=== PATIENT | female | born 1965 | race Caucasian/White ===

== ENCOUNTER 2017-08-12 13:15 | Outpatient (RCR) | payer MEDICARE, MEDICAID ==
[~2017-08-12 13:15] MED LIST: CELEXA 20MG20 MG/TAB PO; CLEOCIN HCL300 MG PO; DEMADEX100 MG PO; DIABETA 5MG5 MG/TAB PO; GLUCOPHAGE1000 MG PO; KLONOPIN 0.5MG0.5 MG PO; LANTUS100 U/ML SC; LASIX 80MG TABL80 MG PO; LORTAB 5/500 501 TAB PO; NAPROSYN500 MG PO; NORCO 325 MG-51 TAB PO; PERCOCET 325 MG1 TA2 PO; PROVENTIL0.09 MG/A1 IH; SAVELLA50 MG PO; SUPER B COMPLEX1 TA2 PO; TYLENOL 500MG500 MG PO; TYLENOL W/COD1 UDTAB PO; VASOTEC20 MG PO; VITAMIN B-12100 MCG PO; VITAMIN C PUR1000 MG PO; VITAMIN D32000 IU PO; ZYLOPRIM 100MG100 MG PO
== END 2017-08-15 | disposition still patient (30) ==
LOC: WSPT
DX: M54.5 Low back pain (principal); M25.50 Pain in unspecified joint; E66.9 Obesity, unspecified; Z68.35 Body mass index [BMI] 35.0-35.9, adult
CPT/HCPCS: G8978-GP; G8979-GP

== ENCOUNTER 2017-08-29 11:15 | Outpatient (RCR) | payer MEDICARE, MEDICAID | END 2017-09-04 09:20 | disposition home or self-care (01) | LOC: WSPT 11:15 | DX: M54.5 Low back pain (principal); M25.50 Pain in unspecified joint; Z68.35 Body mass index [BMI] 35.0-35.9, adult | CPT/HCPCS: G8979-GP; G8980-GP ==

== ENCOUNTER 2022-10-09 08:15 | Outpatient (RCR) | payer MEDICARE | END 2022-10-16 | disposition home or self-care (01) | LOC: WSPT | DX: M54.41 Lumbago with sciatica, right side (principal); M54.42 Lumbago with sciatica, left side; G89.29 Other chronic pain ==

== ENCOUNTER 2022-11-04 19:37 | Inpatient (IN) | payer MEDICARE ==
[~2022-11-04] VITALS: Ht 167.6 cm; Wt 135.3 kg
[2022-11-04 20:17] LABS: BASO % 0.7 % (0.0-2.0); EOS # 0.1 K/mm3 (0.0-0.7); GRAN # 1.5 K/mm3 (1.4-6.5); GRAN % 51.8 % (42.2-75.2); HEMATOCRIT 50.1 % (37.0-47.0); HEMOGLOBIN 16.1 g/dl (12.5-16.0); LYMPH # 0.9 K/mm3 (1.2-3.4); LYMPH % 30.4 % (20.0-51.0); MEAN CELL VOLUME 92 fl (80.0-100.0); MEAN CORPUSCULAR HEMOGLOBIN 30 pg (27-31); MEAN CORPUSCULAR HGB CONC 32 g/dl (33.0-37.0); MEAN PLATELET VOLUME 11.4 fl (7.4-10.4); MONO # 0.4 K/mm3 (0.1-0.6); MONO % 13.7 % (1.7-9.3); PLATELET COUNT 126 K/mm3 (130-400); RED BLOOD COUNT 5.42 M/mm3 (4.10-5.30); REDCELL DISTRIBUTION WIDTH-CV 14.6 % (11.5-14.5)
[2022-11-04 20:31] LABS: ALANINE AMINOTRANSFERASE 34 U/L (0-55); ALBUMIN 3.7 gm/dL (3.5-5.0); ALKALINE PHOSPHATASE 68 U/L (40-150); ANION GAP 14 mmol/L (7-16); AST,SGOT 29 U/L (5-34); BILIRUBIN,TOTAL 0.7 mg/dL (0.2-1.2); BLOOD UREA NITROGEN 7 mg/dL (10-20); CALCIUM 10.1 mg/dL (8.4-10.2); CARBON DIOXIDE 23 mmol/L (22-29); CHLORIDE 106 mmol/L (98-107); CREATININE, serum 0.79 mg/dL (0.57-1.11); GLUCOSE 120 mg/dL (70-99); POTASSIUM 4.1 mmol/L (3.5-4.5); SODIUM 143 mmol/L (136-145); TOTAL PROTEIN 7.9 gm/dL (6.2-8.1)
[2022-11-04 20:37] LABS: TROPONIN-I < 0.010 ng/mL (0.00-0.033)
[2022-11-04 21:32] LABS: COLLECTION METHOD CLEAN CATCH
[2022-11-04 21:39] LABS: MUCOUS Present (NOT PRESENT); SQUAMOUS EPITHELIAL 0-2 /hpf (0-10); URINE APPEARANCE Clear (CLEAR/HAZY); URINE BACTERIA None Seen /hpf (NONE SEEN); URINE BLOOD Negative (NEGATIVE); URINE COLOR Yellow (YELLOW); URINE GLUCOSE 2+ (NEGATIVE); URINE KETONE Negative (NEGATIVE); URINE NITRATE Negative (NEGATIVE); URINE PROTEIN(semi-quant) Negative (NEGATIVE); URINE RBC 0-2 /hpf (0-2); URINE WBC 0-2 /hpf (0-2)
--- NOTE | 2022-11-05 00:30 | NUR ---
PATIENT WAS RECEIVED FROM ED ON A WHEELCHAIR .PATIENT IS ALERT AND ORIENTED.PATIENT IS ON SUPPLEMENTAL OXYGEN 4L VIA NC.PATIENT DENIES PAIN.PATIENT IS A SBA.ADMISSION ORIENTATION DONE.PATIENT WAS OFFERED SALTINE CRACKERS,PEANUT AND CHICKEN BROTH.PATIENT ATE WELL.NO OTHER NEEDS AT THIS TIME.
[2022-11-05 01:09] VITALS: BP 153/78; PULSE 110; TEMP 98.3
[2022-11-05 03:44] VITALS: BP 150/71; PULSE 108; TEMP 98.3
--- NOTE | 2022-11-05 04:11 | NUR ---
IV FLULDS INFUSING WELL.PATIENT DENIES SOB AND PAIN AT THIS TIME.NO OTHER NEEDS AT THIS TIME.
[2022-11-05 06:45] LABS: BASO % 0.4 % (0.0-2.0); EOS % 0.4 % (0.0-4.0); GRAN # 2.2 K/mm3 (1.4-6.5); GRAN % 77.8 % (42.2-75.2); HEMATOCRIT 46.2 % (37.0-47.0); LYMPH # 0.5 K/mm3 (1.2-3.4); LYMPH % 17.9 % (20.0-51.0); MEAN CELL VOLUME 92 fl (80.0-100.0); MEAN CORPUSCULAR HEMOGLOBIN 30 pg (27-31); MEAN CORPUSCULAR HGB CONC 33 g/dl (33.0-37.0); MEAN PLATELET VOLUME 12.2 fl (7.4-10.4); MONO # 0.1 K/mm3 (0.1-0.6); MONO % 2.1 % (1.7-9.3); PLATELET COUNT 115 K/mm3 (130-400); RED BLOOD COUNT 5.05 M/mm3 (4.10-5.30); REDCELL DISTRIBUTION WIDTH-CV 14.6 % (11.5-14.5)
[2022-11-05 07:26] LABS: CALCIUM 9.7 mg/dL (8.4-10.2); CREATININE, serum 0.72 mg/dL (0.57-1.11)
[2022-11-05 08:00] VITALS: BP 137/61; PULSE 100; TEMP 98.1
--- NOTE | 2022-11-05 08:30 | NUR ---
PCT notified this nurse of pts O2 saturation currently 89% on 10L per NC. Pts lower lobes diminished upon lung auscultation. Denies c/o SOB. RT notified. Pt now on 90% on 11L per high flow NC. Dr. Saucedo aware.
--- NOTE | 2022-11-05 08:45 | NUR ---
Morning medications administered per eMAR. Shift assessment completed. Pt remains on 11L per high flow NC with O2 sat remaining at 90%; Dr. Saucedo aware. Telemetry remains on. Peripheral line in R AC remains patent, no edema or redness. Denies c/o pain at this time. Call light within reach. Pulse ox remains on.
[2022-11-05 12:00] VITALS: BP 157/68; PULSE 92; TEMP 98.8
--- NOTE | 2022-11-05 12:42 | NUR ---
Initial visit: Pt was resting and content. Pt stated no needs right now. Manager will follow up as needed.
--- NOTE | 2022-11-05 14:43 | NUR ---
Director Of Quality Control met with Patient in her room to conduct Care Managment intake and discuss discharge planning. Patient verrified that she lives in [place], [place] with her room mate Shekhar P:[phone]. Patient reports that her PCP is in [place], [place]. Patient reports that she does not use O2 or DME. Patient is independant with ADLS/IADLs and intends on discharging home when medically cleared. Patient reports [employer] as her primary insurance.
[2022-11-05 16:24] VITALS: BP 161/77; PULSE 94; TEMP 98.5
[2022-11-05 19:57] VITALS: BP 152/71; PULSE 103; TEMP 98
--- NOTE | 2022-11-05 20:20 | NUR ---
Patient assessed around 2019, A/O, head to toe assessment done, see shift assessment, denies pain, remains on 10L of oxygen via HFNC, IV to right AC, denies further needs, call light and personal items within reach, will continue to monitor.
--- NOTE | 2022-11-05 22:00 | NUR ---
At 2145, patient complained of pain on her IV site, no redness or swelling noted, reinserted IV on her left hand G22.
[2022-11-06] VITALS (7 sets, daily range): BP systolic 145–156; BP diastolic 57–91; PULSE 77–92; TEMP 97.3–98.2
--- NOTE | 2022-11-06 08:00 | NUR ---
PATIENT IS A&O. VSS. 02 @ 10L PER NC WITH SATS IN LOW 90'S. PATIENT REPORTS SHE STOPPED SMOKING 2 MONTHS AGO. SHE REPORTS SHE IS FEELING BETTER AND SITTING UP IN BED WITH BREAKFAST TRAY. NO COMPLAINTS. AM BS WAS 175, NO SSI REQUIRED. AM MEDS GIVEN. HEAD TO TOE ASSESSMENT COMPLETE. PT/OT CONSULTED. SCD'S TO BLE. IV FLUIDS INFUSING VIA PUMP INTO LEFT HAND IV. NO OTHER NEEDS AT THIS TIME. HOSPITALIST TEAM ROUNDING, SEE ORDERS.
[2022-11-06 09:08] LABS: BASO % 0.2 % (0.0-2.0); GRAN # 5.3 K/mm3 (1.4-6.5); GRAN % 83.7 % (42.2-75.2); HEMATOCRIT 44.2 % (37.0-47.0); HEMOGLOBIN 14.2 g/dl (12.5-16.0); LYMPH # 0.7 K/mm3 (1.2-3.4); LYMPH % 11.3 % (20.0-51.0); MEAN CELL VOLUME 91 fl (80.0-100.0); MEAN CORPUSCULAR HEMOGLOBIN 29 pg (27-31); MEAN CORPUSCULAR HGB CONC 32 g/dl (33.0-37.0); MEAN PLATELET VOLUME 11.3 fl (7.4-10.4); MONO # 0.2 K/mm3 (0.1-0.6); MONO % 3.8 % (1.7-9.3); PLATELET COUNT 131 K/mm3 (130-400); RED BLOOD COUNT 4.84 M/mm3 (4.10-5.30); REDCELL DISTRIBUTION WIDTH-CV 14.5 % (11.5-14.5)
[2022-11-06 09:23] LABS: CALCIUM 9.3 mg/dL (8.4-10.2); CREATININE, serum 0.62 mg/dL (0.57-1.11); POTASSIUM 4.1 mmol/L (3.5-4.5)
--- NOTE | 2022-11-06 09:53 | NUR ---
Shift assessment completed at 0745, patient was alert and oriented X4. Patient stated no pain or discomfort. Pedal pulses were difficult to palpate, I will be following up at a later time. Patient was educated on importance of incentive spirometer. A focused lung assessment was also completed. Respiratory therapy enter the room at 0740. Student nurse left the room while respiratory therapist was assisting patient, call light in reach.
--- NOTE | 2022-11-06 21:13 | NUR ---
Patient assessed around 2112, doing better, A/O, head to toe assessment done, see shift assessment, denies pain or discomfort, denies further needs, call light and personal items within reach, will continue to monitor.
--- NOTE | 2022-11-06 22:15 | NUR ---
Patient's IV clotted, reinserted IV on left forearm G22 by kiln head house operator.
[2022-11-07] VITALS (8 sets, daily range): BP systolic 133–174; BP diastolic 69–80; PULSE 61–87; TEMP 97.4–98.8
--- NOTE | 2022-11-07 05:04 | NUR ---
Patient resting in bed, remains on oxygen at 7LPM via HFNC, will continue to monitor.
[2022-11-07 06:35] LABS: HEMATOCRIT 44.4 % (37.0-47.0); HEMOGLOBIN 14.2 g/dl (12.5-16.0); MEAN CELL VOLUME 92 fl (80.0-100.0); MEAN CORPUSCULAR HEMOGLOBIN 30 pg (27-31); MEAN CORPUSCULAR HGB CONC 32 g/dl (33.0-37.0); MEAN PLATELET VOLUME 11.5 fl (7.4-10.4); PLATELET COUNT 155 K/mm3 (130-400); RED BLOOD COUNT 4.82 M/mm3 (4.10-5.30); REDCELL DISTRIBUTION WIDTH-CV 14.6 % (11.5-14.5)
[2022-11-07 06:59] LABS: CALCIUM 9.6 mg/dL (8.4-10.2); CREATININE, serum 0.67 mg/dL (0.57-1.11); POTASSIUM 4.4 mmol/L (3.5-4.5)
[2022-11-07 07:35] LABS: BAND 3 % (0-10); LYMPHOCYTE 8 % (20.0-51.0); NEUTROPHILS 87 % (42.0-75.2)
[2022-11-07 07:36] LABS: MYELOCYTE 0 % (0-0); PLATELET ESTIMATE NORMAL (NORMAL)
--- NOTE | 2022-11-07 09:55 | NUR ---
Head-to-toe assessment completed at 0800, patient was alert and oriented X4. Patient stated she was in no pain at this time. Respiratory therpay initiated a breathing treatment at 0730. After treatment, patient was moved to 5LPM per HFNC by RT. I noted there was a 22gauge peripheral IV to the left forearm, no redness/ edema present. Patient is optimistic about being discharged. Will continue to monitor patients 02 sats. Medications were administered as shown in the EMAR at 0930. Poor tissue perfusion resulted in cap refill >3 in feet.
--- NOTE | 2022-11-07 10:34 | NUR ---
PATIENT ALERT AND ORIENTED X4. VSS. PATIENT HERE FOR HYPOXIA/PNA. REPEAT CXR TO BE COMPLETED TODAY. PATIENT DENIES ANY PAIN. IV TO LEFT FA INT. CALL LIGHT WITHIN REACH.
--- NOTE | 2022-11-07 15:43 | NUR ---
Initial visit; Patient thanked Inspector Packer for looking in on her and asking how she was doing and if she had had "Imposition of Ashes" She said people from [facility] stopped by this morning so she is "ok." Inspector Packer offered God's blessings.
--- NOTE | 2022-11-07 20:10 | NUR ---
Patient assessed around 2007, head to toe assessment done, see shift assessment, denies pain or discomfort, denies shortness of air, took a shower, denies further needs, call light and personal items within reach, will continue to monitor.
[2022-11-08 03:08] VITALS: BP 151/70; PULSE 69; TEMP 97.8
--- NOTE | 2022-11-08 06:32 | NUR ---
Patient had an uneventful night, on oxygen via HFNC at 3LPM, will report off to dayshift.
[2022-11-08 06:48] LABS: HEMATOCRIT 42.9 % (37.0-47.0); MEAN CELL VOLUME 91 fl (80.0-100.0); MEAN CORPUSCULAR HEMOGLOBIN 30 pg (27-31); MEAN CORPUSCULAR HGB CONC 33 g/dl (33.0-37.0); MEAN PLATELET VOLUME 11.8 fl (7.4-10.4); PLATELET COUNT 165 K/mm3 (130-400); RED BLOOD COUNT 4.73 M/mm3 (4.10-5.30); REDCELL DISTRIBUTION WIDTH-CV 14.6 % (11.5-14.5)
[2022-11-08 07:12] LABS: CALCIUM 9.3 mg/dL (8.4-10.2); CREATININE, serum 0.74 mg/dL (0.57-1.11)
[2022-11-08 07:47] LABS: BAND 2 % (0-10); METAMYELOCYTE 1 % (0-0); NEUTROPHILS 73 % (42.0-75.2)
[2022-11-08 07:48] LABS: LYMPHOCYTE 19 % (20.0-51.0); PLATELET ESTIMATE NORMAL (NORMAL)
[2022-11-08 07:50] VITALS: BP 154/71; PULSE 62; TEMP 98
[2022-11-08] MEDS ORDERED: CHANTIX 1MG1 MG PO (08:27)
[2022-11-08] MEDS ORDERED: LYRICA 150MG C150 MG PO (08:28)
[2022-11-08] MEDS ORDERED: PRINIVIL2.5 MG PO (08:28)
[2022-11-08] MEDS ORDERED: EFFEXOR-XR150 MG PO (08:29)
[2022-11-08] MEDS ORDERED: OZEMPIC1 MG/0.71 SQ (08:29)
[2022-11-08] MEDS ORDERED: GLUCOTROL XL2.5 MG PO (08:30)
[2022-11-08] MEDS ORDERED: JARDIANCE25 (08:30)
[2022-11-08] MEDS ORDERED: PROTONIX 40MG T40 MG PO (08:31)
[2022-11-08] MEDS ORDERED: ZOCOR5 MG PO (08:31)
[2022-11-08] MEDS ORDERED: RT ADVAIR 228 DISKUS IH (08:55)
[2022-11-08] MEDS ORDERED: PREDNISONE10 MG PO (08:56)
[2022-11-08] MEDS ORDERED: PROAIR HFA0.09 MG/AC IH (08:56)
[2022-11-08] MEDS ORDERED: OMNICEF 300MG300 MG PO (08:57)
[2022-11-08] MEDS ORDERED: PRINIVIL5 MG PO (08:58)
--- NOTE | 2022-11-08 09:21 | NUR ---
Pt doing well this morning, no complaints of pain. Pt reports that her breathing feels better. Pt is currently sitting up in the chair eating breakfast. Pt hopeful to get to go home. She is aware that respiratory will check her o2 while up walking prior to her leaving. No other needs, will continue to monitor
[2022-11-08] MEDS ORDERED: OXYGEN NASAL.CANN (10:22)
--- NOTE | 2022-11-08 11:40 | NUR ---
The clinical team is ready to discharge the patient today. An exercise oximetry was ordered and the patient qualified for 3 liters of oxygen at rest and 6 liters with ambulation. SIENA met with the patient to address the above. She is agreeable with using whatever DME company that can deliver the oxygen to her quicker. SIENA presented and read the IM form outloud to her. The patient verbalized understanding and agreement to discharge today. She signed the form and declined a copy. SIENA contacted and faxed the oxygen order to Valencia Oleary at [employer]. Awaiting for them to run the order through insurance and for it to be delivered. SIENA updated the patient's RN.
--- NOTE | 2022-11-08 12:37 | NUR ---
Reviewed discharge instructions with pt to include prescriptions and follow up appointment. Pt awaiting her O2 and is aware that she is 3L during the day and 6L during activity. Pt currently eating her lunch, no other needs. Informed her to notify nursing when her ride has arrived
--- NOTE | 2022-11-08 12:40 | NUR ---
Notified Tele monitor that pt will be going home
[2022-11-08 12:41] VITALS: BP 174/91; PULSE 68; TEMP 98.2
--- NOTE | 2022-11-08 13:38 | NUR ---
Ju, at [employer] [employer], reports that the patient would have a co-pay of $14.50 today and then $25 the following months ahead. She states that they will be up to the hospital soon to deliver the oxygen. SW contacted and updated the patient on the above. The patient verbalized understanding and is okay with the co-pay. No additional needs at this time.
== END 2022-11-08 13:56 | disposition home or self-care (01) | DRG 193 ==
LOC: COL.ER 19:37 → SURG 22:02
PROVIDERS: Emergency Medicine; Internal Medicine; ADMIT Internal Medicine
DX: J18.9 Pneumonia, unspecified organism (principal); J96.01 Acute respiratory failure with hypoxia; Z68.42 Body mass index [BMI] 45.0-49.9, adult; F10.90 Alcohol use, unspecified, uncomplicated; K21.9 Gastro-esophageal reflux disease without esophagitis; Z20.822 Contact with and (suspected) exposure to COVID-19; E66.01 Morbid (severe) obesity due to excess calories; I10 Essential (primary) hypertension; E78.5 Hyperlipidemia, unspecified; F32.A Depression, unspecified; E11.9 Type 2 diabetes mellitus without complications; J06.9 Acute upper respiratory infection, unspecified; Z90.710 Acquired absence of both cervix and uterus; Z90.49 Acquired absence of other specified parts of digestive tract; Z88.8 Allergy status to other drugs, medicaments and biological substances; Z91.048 Other nonmedicinal substance allergy status; Z87.891 Personal history of nicotine dependence; Z23 Encounter for immunization; Z79.84 Long term (current) use of oral hypoglycemic drugs
CPT/HCPCS: A9284; J0456; J0696; J1100; J1650; J1815; J2920; J7050; J7120; Q9967

== ENCOUNTER 2022-12-13 08:15 | Outpatient (RCR) | payer MEDICARE ==
[~2022-12-13 08:15] MED LIST changes: +CHANTIX 1MG1 MG PO; +EFFEXOR-XR150 MG PO; +GLUCOTROL XL2.5 MG PO; +JARDIANCE25; +LYRICA 150MG C150 MG PO; +OMNICEF 300MG300 MG PO; +OXYGEN NASAL.CANN; +OZEMPIC1 MG/0.71 SQ; +PREDNISONE10 MG PO; +PRINIVIL2.5 MG PO; +PRINIVIL5 MG PO; +PROAIR HFA0.09 MG/AC IH; +PROTONIX 40MG T40 MG PO; +RT ADVAIR 228 DISKUS IH; +ZOCOR5 MG PO
== END 2022-12-14 | disposition home or self-care (01) ==
LOC: WSPT
DX: M54.41 Lumbago with sciatica, right side (principal); M54.42 Lumbago with sciatica, left side; G89.29 Other chronic pain

== ENCOUNTER 2023-01-07 08:15 | Outpatient (RCR) | payer MEDICARE | END 2023-01-13 | disposition home or self-care (01) | LOC: WSPT | DX: M54.41 Lumbago with sciatica, right side (principal); M54.42 Lumbago with sciatica, left side; G89.29 Other chronic pain ==

== ENCOUNTER 2023-08-13 11:15 | Outpatient (RCR) | payer MEDICARE | END 2023-08-15 | disposition home or self-care (01) | LOC: WSPT | DX: M54.42 Lumbago with sciatica, left side (principal) ==

== ENCOUNTER 2023-09-13 11:15 | Outpatient (RCR) | payer MEDICARE | END 2023-09-15 | disposition home or self-care (01) | LOC: WSPT | DX: M54.42 Lumbago with sciatica, left side (principal) ==